=== PATIENT | male | born 1950 | race Caucasian/White ===

== ENCOUNTER 2018-12-16 01:20 | Observation (INO) | payer OTHER, MEDICARE ==
[2018-12-16] MEDS ORDERED: Sodium Chloride 0.9% 10 ML Syringe FLUSH PRN (01:39)
[2018-12-16] MEDS: Sodium Chloride 0.9% 1,000 ML IV SCH ×4 (02:12→11:12)
[2018-12-16] MEDS: Sodium Chloride 0.9% 1,000 ML IV ONE ×2 (02:12→03:31)
[2018-12-16 02:40] LABS: CHLORIDE,CL 106 mmol/L (98-107); SODIUM,NA 139 mmol/L (136-145)
[2018-12-16 02:42] LABS: ANION GAP 12.2 mmol/L (10-20)
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
[2018-12-16] MEDS ORDERED: Warfarin 2.5 MG Tab PO SCH (07:15)
[2018-12-16] MEDS ORDERED: Gabapentin 300 MG Cap PO SCH (08:00)
[2018-12-16] MEDS ORDERED: Acetaminophen/HYDROcodone 325-10 MG Tab PO SCH (08:00)
[2018-12-16] MEDS ORDERED: Cyanocobalamin (Vitamin B12) 250 MCG Tab PO SCH (08:00)
[2018-12-16] MEDS ORDERED: Simvastatin 10 MG Tab PO SCH (08:00)
[2018-12-16] MEDS ORDERED: Celecoxib 100 MG Cap PO SCH (08:00)
[2018-12-16] MEDS ORDERED: Aspirin 325 MG Tab.EC PO SCH (08:00)
[2018-12-16] MEDS ORDERED: metroNIDAZOLE 500 MG Tab PO SCH (08:00)
[2018-12-16] MEDS ORDERED: Ascorbic Acid 500 MG Tab PO SCH (08:00)
[2018-12-16] MEDS ORDERED: Magnesium Oxide 400 MG Tab PO SCH (08:15)
--- NOTE | 2018-12-16 08:27 | CR ---
[id number] RAD/RAD Chest PA or AP 1V EXAM: FRONTAL CHEST INDICATION: Chest pain. COMPARISON: None. DISCUSSION: There are mild linear opacities in both lung bases likely representing subsegmental atelectasis. Early infiltrates could be obscured. Normal heart size. IMPRESSION: 1. Mild bibasilar atelectasis. Mack Peters MD 12/16/18 0826 Thank you for allowing us to participate in the care of your patient.
[2018-12-16] MEDS ORDERED: Heparin Sodium 5,000 Units/ML Vial IVPUSH ONE (10:54)
[2018-12-16] MEDS ORDERED: Heparin Sodium/0.45% NaCl 25,000 UNITS/500 ML BAG IV SCH (11:00)
--- NOTE | 2018-12-16 11:09 | PCM.DCSUM1 ---
Discharge Summary - Hospital Course HPI Initial Comments: Pt. was admitted observation with chest and L arm pain early this AM. Please refer to H and P. His troponin and EKG were trended, and his troponin this AM was 0.080. EKG was repeated and he did have some increased ST depression in V3 and inverted T wave in V4. No ST elevation. Pt. continues to be pain-free and offers no other complaints or symptoms. Diagnosis: Stroke: No - Discharge Data Discharge Date: 12/16/18 Discharge Disposition: DC/Tfer to Acute Hospital 02 Condition: Stable - Discharge Diagnosis/Problem(s) (1) NSTEMI (non-ST elevated myocardial infarction) SNOMED Code(s): 64818140 ICD Code: I21.4 - NON-ST ELEVATION (NSTEMI) MYOCARDIAL INFARCTION Status: Acute Current Visit: Yes - Discharge Plan Home Medications: Home Meds Acetaminophen [Tylenol] 650 mg PO Q4HR PRN 12/16/18 [History] Ascorbic Acid 500 mg PO DAILY 12/16/18 [History] Aspirin 325 mg PO DAILY 12/16/18 [History] Celecoxib 200 mg PO DAILY 12/16/18 [History] Cyanocobalamin (Vitamin B-12) [Vitamin B-12] 500 mcg PO DAILY 12/16/18 [History] Gabapentin [Neurontin] 300 mg PO TID 12/16/18 [History] Gluc 2KCl/Chondr/Caroline Hy/Hy Ac [Glucosamine & Chondroitin Cap] 2 cap PO DAILY [History] Hydrocodone/Acetaminophen [[place] 10-325 Tablet] 2 tab PO TID 12/16/18 [History] Magnesium Oxide 500 mg PO DAILY 12/16/18 [History] Simvastatin 10 mg PO DAILY 12/16/18 [History] Warfarin [Coumadin] 2.5 mg PO ASDIRECTED 12/16/18 [History] Warfarin [Coumadin] 5 mg PO ASDIRECTED 12/16/18 [History] metroNIDAZOLE [Flagyl] 500 mg PO TID 12/16/18 [History] Forms: ED Department Discharge, Interfacility Transfer EMTALA Referrals: Janis Cardoza DO [Primary Care Provider] - - Discharge Summary/Plan Comment DC Time >30 min.: Yes Discharge Summary/Plan Comment: Pt. will be transferred to [facility] in [place]. I spoke with Dr. Asencio who accepts the patient in transfer. She advises heparinizing the patient because his INR was subtheraputic at 1.9. He was given a 4000u heparin bolus and a 1000U /hr drip. He will be transported via [facility] ground ambulance. He is a code 1. - General Info Date of Service: 12/16/18 Functional Status: Reports: Pain Controlled - Review of Systems General: Reports: No Symptoms HEENT: Reports: No Symptoms Pulmonary: Reports: No Symptoms Cardiovascular: Reports: No Symptoms Gastrointestinal: Reports: No Symptoms Genitourinary: Reports: No Symptoms Musculoskeletal: Reports: No Symptoms Skin: Reports: No Symptoms Neurological: Reports: No Symptoms Psychiatric: Reports: No Symptoms - Patient Data Vitals - Most Recent: Last Vital Signs Temp 36.6 C 12/16/18 10:00 Pulse 83 12/16/18 10:00 Resp 20 12/16/18 10:00 BP 88/59 L 12/16/18 10:00 Pulse Ox 95 12/16/18 10:00 Weight - Most Recent: 87.815 kg I&O - Last 24 hours: Intake & Output 12/15/18 12/16/18 12/16/18 22:59 06:59 14:59 Intake Total 700 588 Output Total 700 Balance 0 588 Lab Results - Last 24 hrs: Laboratory Results - last 24 hr 12/16/18 12/16/18 12/16/18 Range/Units 02:04 02:04 02:04 WBC 8.5 (4.0-10.0) x10^3/uL RBC 3.54 L (4.5-6.0) x10^6/uL Hgb 10.8 L (14.0-18.0) g/dL Hct 35.2 L (40.0-52.0) % MCV 99.4 H (78.0-93.0) fL MCH 30.5 (26.0-32.0) pg MCHC 30.7 L (32.0-36.0) g/dL RDW Coeff of Boni 20.7 H (10.0-15.0) % Plt Count 169 (130-400) x10^3/uL Neut % (Auto) 72.1 (50.0-80.0) % Lymph % (Auto) 18.4 L (25.0-50.0) % [place] % (Auto) 6.1 (2.0-11.0) % Eos % (Auto) 2.9 (0.0-4.0) % Baso % (Auto) 0.5 (0.2-1.2) % PT 19.3 H (9.6-11.4) SEC INR 1.9 L (2.0-3.5) Sodium 139 (136-145) mmol/L Potassium 4.2 (3.5-5.1) mmol/L Chloride 106 (98-107) mmol/L Carbon Dioxide 25 (21-32) mmol/L Anion Gap 12.2 (10-20) mmol/L BUN 16 (7-18) mg/dL Creatinine 0.7 (0.70-1.30) mg/dL Est Cr Clr Drug Dosing TNP Estimated GFR (MDRD) > 60 Glucose 97 (74-106) mg/dL Calcium 8.3 L (8.5-10.1) mg/dL Corrected Calcium 10.06 (8.5-10.1) mg/dL Phosphorus 4.2 (2.6-4.7) mg/dL Magnesium 1.6 L (1.8-2.4) mg/dL Total Bilirubin 0.5 (0.2-1.0) mg/dL AST 35 (15-37) U/L ALT 25 (16-63) U/L Alkaline Phosphatase 180 H (46-116) U/L POC Troponin I (0.00-0.08) ng/mL Troponin I (<=0.056) ng/mL C-Reactive Protein 2.9 H (<=0.9) mg/dL Total Protein 7.5 (6.4-8.2) g/dL Albumin 1.8 L (3.4-5.0) g/dL Globulin 5.7 Albumin/Globulin Ratio 0.32 TSH, Ultra Sensitive 4.079 H (0.358-3.74) uIU/mL 12/16/18 12/16/18 Range/Units 02:09 09:34 WBC (4.0-10.0) x10^3/uL RBC (4.5-6.0) x10^6/uL Hgb (14.0-18.0) g/dL Hct (40.0-52.0) % MCV (78.0-93.0) fL MCH (26.0-32.0) pg MCHC (32.0-36.0) g/dL RDW Coeff of Boni (10.0-15.0) % Plt Count (130-400) x10^3/uL Neut % (Auto) (50.0-80.0) % Lymph % (Auto) (25.0-50.0) % [place] % (Auto) (2.0-11.0) % Eos % (Auto) (0.0-4.0) % Baso % (Auto) (0.2-1.2) % PT (9.6-11.4) SEC INR (2.0-3.5) Sodium (136-145) mmol/L Potassium (3.5-5.1) mmol/L Chloride (98-107) mmol/L Carbon Dioxide (21-32) mmol/L Anion Gap (10-20) mmol/L BUN (7-18) mg/dL Creatinine (0.70-1.30) mg/dL Est Cr Clr Drug Dosing Estimated GFR (MDRD) Glucose (74-106) mg/dL Calcium (8.5-10.1) mg/dL Corrected Calcium (8.5-10.1) mg/dL Phosphorus (2.6-4.7) mg/dL Magnesium (1.8-2.4) mg/dL Total Bilirubin (0.2-1.0) mg/dL AST (15-37) U/L ALT (16-63) U/L Alkaline Phosphatase (46-116) U/L POC Troponin I 0.03 (0.00-0.08) ng/mL Troponin I 0.080 H* (<=0.056) ng/mL C-Reactive Protein (<=0.9) mg/dL Total Protein (6.4-8.2) g/dL Albumin (3.4-5.0) g/dL Globulin Albumin/Globulin Ratio TSH, Ultra Sensitive (0.358-3.74) uIU/mL Med Orders - Current: Current Medications Hydrocodone Bitart/Acetaminophen ([place] 325-10 Mg) 2 tab PO TID [facility] Last Admin: 12/16/18 08:29 Dose: 2 tab Ascorbic Acid (Vitamin C) 500 mg PO DAILY [facility] Last Admin: 12/16/18 08:29 Dose: 500 mg Aspirin (Ecotrin) 325 mg PO DAILY [facility] Last Admin: 12/16/18 08:29 Dose: 325 mg Celecoxib (Celebrex) 200 mg PO DAILY [facility] Last Admin: 12/16/18 08:29 Dose: 200 mg Cyanocobalamin (Vitamin B12) 500 mcg PO DAILY [facility] Last Admin: 12/16/18 08:29 Dose: 500 mcg Gabapentin (Neurontin) 300 mg PO TID [facility] Last Admin: 12/16/18 08:29 Dose: 300 mg Sodium Chloride (Normal Saline) 1,000 mls @ 75 mls/hr IV ASDIRECTED [facility] Last Admin: 12/16/18 04:03 Dose: 75 mls/hr Heparin Sodium/Sodium Chloride (Heparin 25,000 Units In 1/2 Ns 500 Ml) 25,000 units in 500 mls @ 20 mls/hr IV TITRATE [facility]; Protocol Magnesium Oxide (Magnesium Oxide) 400 mg PO DAILY [facility] Last Admin: 12/16/18 08:29 Dose: 400 mg Metronidazole (Flagyl) 500 mg PO TID [facility] Last Admin: 12/16/18 08:29 Dose: 500 mg Simvastatin (Zocor) 10 mg PO DAILY [facility] Last Admin: 12/16/18 08:29 Dose: 10 mg Sodium Chloride (Saline Flush) 10 ml FLUSH ASDIRECTED PRN PRN Reason: Keep Vein Open Warfarin Sodium (Coumadin) 5 mg PO DAILY@1800 [facility] Stop: 12/17/18 18:01 Discontinued Medications Heparin Sodium (Porcine) (Heparin Sodium) 4,000 units IVPUSH ONETIME ONE Stop: 12/16/18 10:55 Sodium Chloride (Normal Saline) 1,000 mls @ 999 mls/hr IV ASDIRECTED [facility] Last Admin: 12/16/18 03:29 Dose: 999 mls/hr Sodium Chloride (Normal Saline) 1,000 mls @ 999 mls/hr IV ASDIRECTED ONE Stop: 12/16/18 03:10 Last Admin: 12/16/18 03:31 Dose: Not Given - Exam General: Reports: Alert, Oriented HEENT: Reports: Pupils Equal, Pupils Reactive, EOMI, Mucous Membr. Moist/[place] Neck: Reports: Supple Lungs: Reports: Clear to Auscultation, Normal Respiratory Effort Cardiovascular: Reports: Regular Rate, Regular Rhythm GI/Abdominal Exam: Normal Bowel Sounds, Soft, Non-Tender, No Organomegaly, No Distention, No Abnormal Bruit, No Mass
[2018-12-16] MEDS ORDERED: Warfarin 5 MG Tab PO SCH (18:00)
== END 2018-12-16 11:53 | disposition short-term general hospital (02) ==
LOC: VM.ED 01:20 → VM.MS 02:45
PROVIDERS: ADMIT Physician Assistant; ATTEND Physician Assistant
DX: I21.4 Non-ST elevation (NSTEMI) myocardial infarction (principal); E78.00 Pure hypercholesterolemia, unspecified; E83.42 Hypomagnesemia; Z79.82 Long term (current) use of aspirin; Z79.899 Other long term (current) drug therapy
CPT/HCPCS: 36415; 71045; 80053; 83735; 84100; 84443; 84484; 85025; 85610; 86140; 93005; 96360; 96361; 96374; 96376; 99285-25; A9270-GY; G0378; J1644; J7030